=== PATIENT | female | born 1975 ===

== ENCOUNTER → 2018-07-03 | Outpatient (CLI) | payer OTHER | LOC: LAB SHORT 07:50 → PLD 07:50 | PROVIDERS: Nurse Practitioner Family | DX: Z01.419 Encounter for gynecological examination (general) (routine) without abnormal findings (principal); L91.8 Other hypertrophic disorders of the skin | CPT/HCPCS: 88305; G0145 ==

== ENCOUNTER → 2018-07-15 | Outpatient (CLI) | payer OTHER | LOC: PLD 09:25 → LAB SHORT 09:25 | DX: D22.5 Melanocytic nevi of trunk (principal) | CPT/HCPCS: 88305 ==